=== PATIENT | male | born 1980 | race Caucasian/White ===

== ENCOUNTER 2024-03-19 11:34 | Inpatient (IN) | payer BC ==
[~2024-03-19] VITALS: Ht 175.3 cm; Wt 72.0 kg
[2024-03-19] MEDS: normal saline 1000ml 1,000 ML IV ONE ×2 (12:15→13:41)
[2024-03-19 12:16] LABS: BASOPHILS % (AUTO) 0.2 % (0-1); EOSINOPHILS % (AUTO) 0.4 % (0-6); HEMATOCRIT 54.3 % (42.0-52.0); LYMPHOCYTES # (AUTO) 2.7 X10'3 (1.1-4.8); LYMPHOCYTES % (AUTO) 22.6 % (21-51); MEAN CORPUSCULAR HEMOGLOBIN 32.5 PG (27.0-31.0); MEAN CORPUSCULAR HGB CONC 34.5 g/dL (33.0-36.5); MEAN CORPUSCULAR VOLUME 94.3 FL (78-98); MEAN PLATELET VOLUME 8.2 FL (7.4-10.4); MONOCYTES # (AUTO) 1.1 X10'3 (0-0.9); NEUTROPHILS % (AUTO) 67.8 % (42-75); PLATELET COUNT 274 X10'3 (140-440); RED BLOOD COUNT 5.77 X10'6 (4.70-6.10); RED CELL DISTRIBUTION WIDTH 13.2 % (11.5-14.5); WHITE BLOOD COUNT 11.9 X10'3 (4.5-11.0)
[2024-03-19 12:18] LABS: HEMOGLOBIN 18.7 g/dl (14.0-17.9)
[2024-03-19] MEDS ORDERED: pantoprazole 40 MG vial IV SCH (12:20)
[2024-03-19 12:29] LABS: ALANINE AMINOTRANSFERASE 19 U/L (12-78); ALBUMIN 4.4 G/DL (3.4-5.0); ALBUMIN/GLOBULIN RATIO 1.5 (1.1-1.5); ALKALINE PHOSPHATASE 79 IU/L (46-116); ANION GAP 8 (8-16); ASPARTATE AMINO TRANSFERASE 10 U/L (10-37); BILIRUBIN,TOTAL 1.7 MG/DL (0.1-1.0); BLOOD UREA NITROGEN 37 MG/DL (7-18); BUN/CREATININE RATIO 29.8 (10.0-20.0); CALCIUM 9.3 MG/DL (8.5-10.1); CHLORIDE 98 MMOL/L (99-107); CREATININE 1.24 MG/DL (0.60-1.10); GLUCOSE 134 MG/DL (70-104); LIPASE 29 U/L (16-77); POTASSIUM 3.6 MMOL/L (3.5-5.1); SODIUM 135 MMOL/L (135-145); TOTAL CARBON DIOXIDE 29.1 MMOL/L (24-32); TOTAL PROTEIN 7.4 G/DL (6.4-8.2); eCRCL 75 ML/MIN; eGFR 64 ML/MIN
[2024-03-19] MEDS: metoclopramide 5 mg/ml inj IV ONE (13:02)
[2024-03-19] MEDS: pantoprazole 40 MG vial IV ONE (13:08)
[2024-03-19] MEDS: diphenhydrAMINE 50 mg/ml inj IV ONE (13:09)
[2024-03-19] MEDS ORDERED: iohexol 300mg/ml 100ml inj. ONE (14:09)
[2024-03-19] MEDS ORDERED: ondansetron/PF 4mg/2ml inj IV PRN (15:05)
[2024-03-19] MEDS ORDERED: potassium Cl 40MEQ/1/2NS 520ml 520 ML IV PRN (15:05)
[2024-03-19] MEDS ORDERED: magnesium Cl slow-release 64mg tablet PO PRN (15:05)
[2024-03-19] MEDS ORDERED: magnesium sulf-water 4G/100mL 100 ML IV PRN (15:05)
[2024-03-19] MEDS ORDERED: acetaminophen 325mg tablet PO PRN (15:05)
[2024-03-19] MEDS ORDERED: magnesium sulf-water 2g/50mL 50 ML IV PRN (15:05)
[2024-03-19] MEDS ORDERED: potassium Cl 20 mEq SR tablet PO PRN ×2 (15:05)
[2024-03-19] MEDS: morphine 2 MG/ML inj. syringe IV PRN (15:55)
[2024-03-19] MEDS: normal saline 1000ml 1,000 ML IV SCH (15:55)
[2024-03-19] MEDS ORDERED: OMEP40CA21 PO (16:37)
[2024-03-19] MEDS ORDERED: ESCI20TA39 PO (16:37)
[2024-03-19 19:30] LABS: BILIRUBIN,URINE NEGATIVE (Neg); CLARITY,URINE SLIGHTLY CLOUDY (Clear); COLOR,URINE YELLOW (Yellow); GLUCOSE, URINE NEGATIVE (Neg); KETONES,URINE 40 mg/dl (Neg); LEUKOCYTE ESTERASE ,URINE NEGATIVE (Neg); NITRITES, URINE NEGATIVE (Neg); OCCULT BLOOD,URINE TRACE-INTACT (Neg); PROTEIN,URINE NEGATIVE (Neg); UROBILINOGEN,URINE 0.2 E.U/dL (0.2-1.0)
[2024-03-19 19:32] LABS: UA COLLECTION TYPE CLN CATCH MIDSTREAM
[2024-03-19 19:35] LABS: RBC,URINE 0-2 /HPF (0-2); SQUAMOUS EPITHELIAL CELL,UR FEW /LPF (FEW); WBC,URINE 0-4 /HPF (0-4)
[2024-03-19 19:36] LABS: BACTERIA,URINE FEW /HPF (Neg)
[2024-03-19] MEDS: K and/or MAG REPLACEMENT MC SCH (20:21)
[2024-03-19] MEDS: pantoprazole 40MG/NS 100ML BAG 100 ML IV SCH (20:37)
[2024-03-19 23:00] VITALS: BP_SYST 113; BP_SYST 127; BP_SYST 135; BP_DIAS 70; BP_DIAS 92; BP_DIAS 95; PULSE 65; RESP 16; TEMP 98.3; O2SAT 100
[2024-03-19] MEDS: pantoprazole 40 MG vial IV SCH (23:13)
[2024-03-20] VITALS (12 sets, daily range): BP systolic 114–142; BP diastolic 71–109; PULSE 57–79; RESP 12–18; TEMP 97.4–97.9; O2SAT 97–100
[2024-03-20 07:29] LABS: BASOPHILS % (AUTO) 0.1 % (0-1); MEAN PLATELET VOLUME 9.2 FL (7.4-10.4); MONOCYTES # (AUTO) 0.8 X10'3 (0-0.9); RED CELL DISTRIBUTION WIDTH 12.8 % (11.5-14.5)
[2024-03-20 07:33] LABS: ALBUMIN 3.6 G/DL (3.4-5.0); ANION GAP 5 (8-16); BLOOD UREA NITROGEN 28 MG/DL (7-18); BUN/CREATININE RATIO 34.1 (10.0-20.0); CALCIUM 8.5 MG/DL (8.5-10.1); CHLORIDE 102 MMOL/L (99-107); CREATININE 0.82 MG/DL (0.60-1.10); EOSINOPHILS % (AUTO) 0.5 % (0-6); GLUCOSE 101 MG/DL (70-104); HEMATOCRIT 46.6 % (42.0-52.0); HEMOGLOBIN 16.3 g/dl (14.0-17.9); LYMPHOCYTES # (AUTO) 2.1 X10'3 (1.1-4.8); LYMPHOCYTES % (AUTO) 22.9 % (21-51); MEAN CORPUSCULAR HEMOGLOBIN 32.8 PG (27.0-31.0); MEAN CORPUSCULAR HGB CONC 34.9 g/dL (33.0-36.5); MONOCYTES % (AUTO) 8.6 % (2-12); NEUTROPHILS # (AUTO) 6.3 X10'3 (1.8-7.7); NEUTROPHILS % (AUTO) 67.9 % (42-75); PLATELET COUNT 198 X10'3 (140-440); POTASSIUM 3.6 MMOL/L (3.5-5.1); RED BLOOD COUNT 4.96 X10'6 (4.70-6.10); SODIUM 136 MMOL/L (135-145); TOTAL CARBON DIOXIDE 28.9 MMOL/L (24-32); WHITE BLOOD COUNT 9.3 X10'3 (4.5-11.0); eCRCL 117 ML/MIN; eGFR > 90 ML/MIN
[2024-03-20] MEDS: morphine 2 MG/ML inj. syringe IV PRN (11:15)
[2024-03-20] MEDS ORDERED: fentaNYL/PF 50MCG/1 ML 2ML syringe ONE ×2 (12:50→13:35)
[2024-03-20] MEDS ORDERED: MIDAZolam 1 MG/ML 5ML VIAL ONE ×2 (12:50→13:35)
[2024-03-20] MEDS ORDERED: LIDOcaine 2% Viscous 15ml cup ONE (12:50)
[2024-03-20 16:38] LABS: C DIFF ANTIGEN NEGATIVE (NEGATIVE); C DIFF SPECIMEN=DIARRHEA? ACCEPTABLE; C DIFFICILE TOXINS A&B NEGATIVE (Neg)
[2024-03-20 17:22] LABS: OCCULT BLOOD STOOL POSITIVE (Neg)
[2024-03-21] MEDS: temazepam 15mg capsule PO PRN (01:18)
[2024-03-21 06:00] VITALS: BP 118/69; PULSE 65; RESP 14; TEMP 97.9; O2SAT 96
[2024-03-21 07:02] LABS: BASOPHILS % (AUTO) 0.2 % (0-1); EOSINOPHILS # (AUTO) 0.1 X10'3 (0-0.9); EOSINOPHILS % (AUTO) 1.1 % (0-6); HEMATOCRIT 40.1 % (42.0-52.0); HEMOGLOBIN 14.1 g/dl (14.0-17.9); LYMPHOCYTES # (AUTO) 2.7 X10'3 (1.1-4.8); LYMPHOCYTES % (AUTO) 36.1 % (21-51); MEAN CORPUSCULAR HEMOGLOBIN 32.9 PG (27.0-31.0); MEAN CORPUSCULAR HGB CONC 35.2 g/dL (33.0-36.5); MEAN CORPUSCULAR VOLUME 93.5 FL (78-98); MEAN PLATELET VOLUME 8.8 FL (7.4-10.4); MONOCYTES # (AUTO) 0.6 X10'3 (0-0.9); MONOCYTES % (AUTO) 7.6 % (2-12); NEUTROPHILS # (AUTO) 4.1 X10'3 (1.8-7.7); PLATELET COUNT 164 X10'3 (140-440); RED BLOOD COUNT 4.29 X10'6 (4.70-6.10); RED CELL DISTRIBUTION WIDTH 12.9 % (11.5-14.5); WHITE BLOOD COUNT 7.4 X10'3 (4.5-11.0)
[2024-03-21 07:07] LABS: ANION GAP 5 (8-16); BLOOD UREA NITROGEN 19 MG/DL (7-18); CHLORIDE 104 MMOL/L (99-107); CREATININE 0.76 MG/DL (0.60-1.10); GLUCOSE 95 MG/DL (70-104); MAGNESIUM 1.8 MG/DL (1.5-2.4); POTASSIUM 3.4 MMOL/L (3.5-5.1); SODIUM 137 MMOL/L (135-145); TOTAL CARBON DIOXIDE 27.6 MMOL/L (24-32); eCRCL 127 ML/MIN; eGFR > 90 ML/MIN
[2024-03-21 07:35] VITALS: RESP 18; O2SAT 90; O2SAT 96
[2024-03-21 10:00] VITALS: BP 111/78; PULSE 76; RESP 18; TEMP 97.1; O2SAT 100
[2024-03-21] MEDS: PEG 3350/Na sulf,bicarb,Cl/KCl oral sol 4 liter bottle PO ONE (12:03)
[2024-03-21] MEDS: metroNIDAZOLE-Flagyl 500mg/NS 100 ML IV SCH (17:37)
[2024-03-21 18:00] VITALS: BP 131/85; PULSE 66; RESP 15; TEMP 98.3; O2SAT 99
[2024-03-21 20:00] VITALS: RESP 15; O2SAT 99
[2024-03-21] MEDS: levoFLOXACIN-Levaquin 500mg/D5 100 ML IV SCH (21:26)
[2024-03-21 22:00] VITALS: BP 121/75; PULSE 67; RESP 19; TEMP 97; O2SAT 100
[2024-03-22] VITALS (10 sets, daily range): BP systolic 104–129; BP diastolic 63–95; PULSE 41–81; RESP 13–21; TEMP 97.4–98.1; O2SAT 95–100
[2024-03-22 07:07] LABS: BASOPHILS % (AUTO) 0.3 % (0-1); EOSINOPHILS # (AUTO) 0.1 X10'3 (0-0.9); EOSINOPHILS % (AUTO) 1.3 % (0-6); HEMATOCRIT 40.2 % (42.0-52.0); HEMOGLOBIN 14.2 g/dl (14.0-17.9); LYMPHOCYTES # (AUTO) 2.4 X10'3 (1.1-4.8); LYMPHOCYTES % (AUTO) 36.9 % (21-51); MEAN CORPUSCULAR HEMOGLOBIN 33.4 PG (27.0-31.0); MEAN CORPUSCULAR HGB CONC 35.4 g/dL (33.0-36.5); MEAN CORPUSCULAR VOLUME 94.2 FL (78-98); MEAN PLATELET VOLUME 8.4 FL (7.4-10.4); MONOCYTES # (AUTO) 0.6 X10'3 (0-0.9); MONOCYTES % (AUTO) 9.5 % (2-12); NEUTROPHILS # (AUTO) 3.4 X10'3 (1.8-7.7); PLATELET COUNT 163 X10'3 (140-440); RED BLOOD COUNT 4.26 X10'6 (4.70-6.10); RED CELL DISTRIBUTION WIDTH 12.9 % (11.5-14.5); WHITE BLOOD COUNT 6.6 X10'3 (4.5-11.0)
[2024-03-22 07:13] LABS: ANION GAP 4 (8-16); BLOOD UREA NITROGEN 11 MG/DL (7-18); BUN/CREATININE RATIO 12.4 (10.0-20.0); CALCIUM 8.3 MG/DL (8.5-10.1); CHLORIDE 106 MMOL/L (99-107); CREATININE 0.89 MG/DL (0.60-1.10); GLUCOSE 100 MG/DL (70-104); MAGNESIUM 1.8 MG/DL (1.5-2.4); SODIUM 138 MMOL/L (135-145); TOTAL CARBON DIOXIDE 27.9 MMOL/L (24-32); eCRCL 108 ML/MIN; eGFR > 90 ML/MIN
[2024-03-22] MEDS ORDERED: MIDAZolam 1 MG/ML 5ML VIAL ONE (09:26)
[2024-03-22] MEDS ORDERED: fentaNYL/PF 50MCG/1 ML 2ML syringe ONE (09:26)
[2024-03-22 14:38] LABS: LIPASE 34 U/L (16-77)
[2024-03-22] MEDS: HYDROcodone/acetaminophen 5mg/325mg tablet PO PRN (22:39)
[2024-03-23 06:00] VITALS: BP 102/67; PULSE 66; RESP 14; TEMP 97.5; O2SAT 98
[2024-03-23 06:25] LABS: ALBUMIN 3.1 G/DL (3.4-5.0); ANION GAP 5 (8-16); BLOOD UREA NITROGEN 11 MG/DL (7-18); BUN/CREATININE RATIO 11.8 (10.0-20.0); CALCIUM 8.7 MG/DL (8.5-10.1); CHLORIDE 106 MMOL/L (99-107); CREATININE 0.93 MG/DL (0.60-1.10); GLUCOSE 101 MG/DL (70-104); MAGNESIUM 1.8 MG/DL (1.5-2.4); POTASSIUM 4.3 MMOL/L (3.5-5.1); SODIUM 139 MMOL/L (135-145); TOTAL CARBON DIOXIDE 27.7 MMOL/L (24-32); eCRCL 103 ML/MIN; eGFR 89 ML/MIN
[2024-03-23 06:26] LABS: BASOPHILS % (AUTO) 0.3 % (0-1); EOSINOPHILS # (AUTO) 0.1 X10'3 (0-0.9); EOSINOPHILS % (AUTO) 1.4 % (0-6); HEMATOCRIT 39.6 % (42.0-52.0); HEMOGLOBIN 13.9 g/dl (14.0-17.9); LYMPHOCYTES # (AUTO) 3.3 X10'3 (1.1-4.8); LYMPHOCYTES % (AUTO) 44.1 % (21-51); MEAN CORPUSCULAR HEMOGLOBIN 33.2 PG (27.0-31.0); MEAN CORPUSCULAR HGB CONC 35.1 g/dL (33.0-36.5); MEAN CORPUSCULAR VOLUME 94.6 FL (78-98); MEAN PLATELET VOLUME 8.4 FL (7.4-10.4); MONOCYTES # (AUTO) 0.6 X10'3 (0-0.9); MONOCYTES % (AUTO) 7.3 % (2-12); NEUTROPHILS # (AUTO) 3.6 X10'3 (1.8-7.7); NEUTROPHILS % (AUTO) 46.9 % (42-75); PLATELET COUNT 169 X10'3 (140-440); RED BLOOD COUNT 4.19 X10'6 (4.70-6.10); RED CELL DISTRIBUTION WIDTH 13.1 % (11.5-14.5); WHITE BLOOD COUNT 7.6 X10'3 (4.5-11.0)
[2024-03-23 08:00] VITALS: RESP 14; O2SAT 98
[2024-03-23 10:00] VITALS: BP 107/66; PULSE 61; RESP 16; TEMP 97.4; O2SAT 100
[2024-03-23] MEDS ORDERED: METR-159 PO (11:10)
[2024-03-23] MEDS ORDERED: LEVO-65 PO (11:10)
== END 2024-03-23 14:05 | disposition home or self-care (01) | DRG 378 ==
LOC: ER 11:34 → ED HOLD 15:08 → ORTHO 4S 22:50
PROVIDERS: ADMIT Internal Medicine; ATTEND Internal Medicine
PROC: 0DB78ZX Excision of Stomach, Pylorus, Via Natural or Artificial Opening Endoscopic, Diagnostic (ICD-10-PCS; principal; 2024-03-20)
PROC: 0DJD8ZZ Inspection of Lower Intestinal Tract, Via Natural or Artificial Opening Endoscopic (ICD-10-PCS; 2024-03-22)
DX: K29.71 Gastritis, unspecified, with bleeding (principal); K50.00 Crohn's disease of small intestine without complications; N17.9 Acute kidney failure, unspecified; D75.1 Secondary polycythemia; E86.0 Dehydration; K20.90 Esophagitis, unspecified without bleeding; K62.89 Other specified diseases of anus and rectum; K52.9 Noninfective gastroenteritis and colitis, unspecified; F12.10 Cannabis abuse, uncomplicated; F32.A Depression, unspecified; Z88.1 Allergy status to other antibiotic agents; Z90.49 Acquired absence of other specified parts of digestive tract; Z88.8 Allergy status to other drugs, medicaments and biological substances
CPT/HCPCS: 36415; 43239; 45378; 74177; 76700; 80048; 80053; 81001; 82272; 83690; 83735; 85025; 87045; 87046; 87081; 87324; 87449; 89055; 99152; 99285; A4620; G0378; J1200; J1956; J2250; J2270; J2470; J2765; J3010; J3490; J7030; Q9967